=== PATIENT | female | born 1985 | race Caucasian/White ===

== ENCOUNTER 2016-07-12 17:03 | Observation (INO) | payer MEDICAID ==
[~2016-07-12] VITALS: Ht 157.5 cm; Wt 76.4 kg
[~2016-07-12 17:03] MED LIST: CETI10TA24 PO; FLUT9.9S NS; PREN1TAB25 PO; RIBO50TA PO
[2016-07-12 17:26] VITALS: BP 143/84
[2016-07-12] MEDS ORDERED: ACETAMINOPHEN 325 MG TABLET ONE (17:50)
[2016-07-12] MEDS ORDERED: ACETAMINOPHEN 325 MG TABLET PO PRN (18:00)
[2016-07-12 18:26] LABS: BLOOD UREA NITROGEN 6 mg/dL (7-18)
[2016-07-12 18:30] LABS: ASPARTATE AMINO TRANSFERASE 21 U/L (15-37)
[2016-07-12] MEDS ORDERED: BUTALB/APAP/CAFFEINE 50MG/325MG/40MG PO ONE (19:53)
== END 2016-07-12 23:10 | disposition home or self-care (01) ==
LOC: CLISVCS 17:03 → LDIP 19:00
PROVIDERS: ADMIT Student in an Organized Health Care Education/Training Program; ATTEND Student in an Organized Health Care Education/Training Program
DX: O13.3 Gestational [pregnancy-induced] hypertension without significant proteinuria, third trimester (principal); O12.03 Gestational edema, third trimester; O26.893 Other specified pregnancy related conditions, third trimester; R10.10 Upper abdominal pain, unspecified; R51 Headache; Z3A.37 37 weeks gestation of pregnancy
CPT/HCPCS: 36415; 80053; 81003; 82248; 82570; 84156; 84550; 85025; G0378; 59025

== ENCOUNTER 2016-07-13 14:24 | Inpatient (IN) | payer MEDICAID ==
[~2016-07-13] VITALS: Ht 157.5 cm; Wt 76.4 kg
[2016-07-13] MEDS ORDERED: MISOPROSTOL 25 MCG TABLET ONE (14:28)
[2016-07-13] MEDS ORDERED: OXYTOCIN 30U/ 0.9% NaCL 500ML 500 ML IV ONE (14:33)
[2016-07-13] MEDS: D5%-LACTATED RINGERS 1,000 ML IV SCH ×2 (14:33→22:33)
[2016-07-13] MEDS ORDERED: FENTANYL PF 100 MCG/2ML IVPush PRN (15:00)
[2016-07-13] MEDS ORDERED: MISOPROSTOL 25 MCG TABLET VG PRN (15:00)
[2016-07-13] MEDS ORDERED: TERBUTALINE 1 MG/ML, 1ML IVPush PRN (15:00)
[2016-07-13] MEDS ORDERED: ONDANSETRON 2MG/ML, 2ML IVPush PRN (15:00)
[2016-07-13] MEDS ORDERED: FENTANYL PF 100 MCG/2ML IV PRN (15:00)
[2016-07-13] MEDS: LACTATED RINGERS 1,000 ML IV SCH ×3 (15:00→22:33)
[2016-07-13] MEDS ORDERED: ACETAMINOPHEN 325 MG TABLET ONE (15:27)
[2016-07-13] MEDS: ACETAMINOPHEN 325 MG TABLET PO PRN (15:30)
[2016-07-13] MEDS ORDERED: MISOPROSTOL 200 MCG TABLET ONE (15:41)
[2016-07-13] MEDS ORDERED: LIDOCAINE 1%, 20ML ONE (15:41)
[2016-07-13] MEDS ORDERED: NEWBORN KIT ONE (15:42)
[2016-07-13] MEDS ORDERED: FENTANYL PF 100 MCG/2ML ONE (19:18)
[2016-07-13] MEDS ORDERED: DIPHENHYDRAMINE 50 MG CAPSULE PO PRN (21:00)
[2016-07-14] MEDS: LACTATED RINGERS 1,000 ML IV SCH ×4 (06:33→23:09)
[2016-07-14] MEDS: D5%-LACTATED RINGERS 1,000 ML IV SCH ×3 (06:33→22:33)
[2016-07-14] MEDS ORDERED: OXYTOCIN 30U/ 0.9% NaCL 500ML 500 ML IV PRN (08:20)
[2016-07-14] MEDS ORDERED: OXYTOCIN 30U/ 0.9% NaCL 500ML 500 ML ONE (09:15)
[2016-07-14] MEDS ORDERED: ACETAMINOPHEN 325 MG TABLET ONE (10:12)
[2016-07-14] MEDS: ACETAMINOPHEN 325 MG TABLET PO PRN (10:15)
[2016-07-14] MEDS ORDERED: FENTANYL/BUPIV./NS/PF 250 ML EPIDCONT SCH ×2 (12:55→23:09)
[2016-07-14] MEDS ORDERED: LACTATED RINGERS 1,000 ML IVBOLUS PRN ×2 (13:00→23:30)
[2016-07-14] MEDS ORDERED: BUPIVACAINE 0.25% ONE (13:41)
[2016-07-14] MEDS ORDERED: FENTANYL PF 100 MCG/2ML ONE (13:41)
[2016-07-14] MEDS ORDERED: FENTANYL/BUPIV./NS/PF 250 ML EPIDCONT ONE (13:41)
[2016-07-14] MEDS ORDERED: ONDANSETRON 2MG/ML, 2ML ONE (20:04)
[2016-07-15] MEDS ORDERED: SODIUM CITRATE/CITRIC ACID 30 ML UDC ONE (00:22)
[2016-07-15] MEDS ORDERED: METOCLOPRAMIDE 5 MG/ML, 2ML ONE (00:22)
[2016-07-15] MEDS ORDERED: LACTATED RINGERS 1,000 ML IVBOLUS ONE (00:30)
[2016-07-15] MEDS ORDERED: OXYTOCIN 30U/ 0.9% NaCL 500ML 500 ML IV SCH ×2 (00:30→00:52)
[2016-07-15] MEDS ORDERED: LACTATED RINGERS 1,000 ML IV SCH ×4 (00:30→00:52)
[2016-07-15] MEDS ORDERED: LIDOCAINE-MPF 2% ,5ML ONE (00:47)
[2016-07-15] MEDS ORDERED: FENTANYL PF 100 MCG/2ML ONE (00:47)
[2016-07-15] MEDS: KETOROLAC 30 MG/1 ML IM SCH ×4 (01:00→19:00)
[2016-07-15] MEDS ORDERED: OXYcodone/APAP 5/325MG TABLET PO PRN (01:00)
[2016-07-15] MEDS ORDERED: MISOPROSTOL 200 MCG TABLET PR PRN (01:00)
[2016-07-15] MEDS ORDERED: ONDANSETRON 2MG/ML, 2ML IV PRN (01:00)
[2016-07-15] MEDS ORDERED: CARBOPROST TROMETHAMINE 250 MCG/ML, 1ML IM PRN (01:00)
[2016-07-15] MEDS ORDERED: CALCIUM CARBONATE 500 MG TAB.CHEW PO PRN (01:00)
[2016-07-15] MEDS ORDERED: morphine SULFATE/PF 0.5 MG/ML, 10ML ONE (01:36)
[2016-07-15] MEDS ORDERED: HYDROmorphone 1 MG/ML, 1ML ONE (02:12)
[2016-07-15] MEDS: HYDROmorphone 1 MG/ML, 1ML IV PRN ×2 (02:23→03:13)
[2016-07-15 03:45] VITALS: BP 153/98
[2016-07-15] MEDS: LACTATED RINGERS 1,000 ML IV SCH (07:09)
[2016-07-15 08:00] VITALS: BP 142/107
[2016-07-15] MEDS: OXYcodone/APAP 5/325MG TABLET PO PRN ×4 (08:22→21:00)
[2016-07-15] MEDS: PRENATAL VIT/IRON/FA 1 EACH TABLET PO SCH (09:00)
[2016-07-15 12:21] VITALS: BP 131/84
[2016-07-15 16:11] VITALS: BP 135/92
[2016-07-15] MEDS: SIMETHICONE 80 MG CHEW TAB PO PRN (21:00)
[2016-07-15 22:25] VITALS: BP 136/92
[2016-07-16] MEDS: KETOROLAC 30 MG/1 ML IM SCH ×2 (01:00→07:00)
[2016-07-16] MEDS: OXYcodone/APAP 5/325MG TABLET PO PRN ×5 (01:29→20:41)
[2016-07-16 01:45] VITALS: BP 136/99
[2016-07-16] MEDS: SIMETHICONE 80 MG CHEW TAB PO PRN ×3 (05:21→16:48)
[2016-07-16 07:35] VITALS: BP 140/98
[2016-07-16] MEDS: PRENATAL VIT/IRON/FA 1 EACH TABLET PO SCH (08:33)
[2016-07-16] MEDS: DOCUSATE 100 MG CAPSULE PO PRN ×2 (09:25→20:41)
[2016-07-16 12:00] VITALS: BP 137/93
[2016-07-16 16:00] VITALS: BP 140/88
[2016-07-16] MEDS ORDERED: KETOROLAC 30 MG/1 ML ONE (16:19)
[2016-07-16] MEDS ORDERED: KETOROLAC 30 MG/1 ML IM ONE (16:30)
[2016-07-16 19:35] VITALS: BP 127/87
[2016-07-17] VITALS (10 sets, daily range): BP systolic 138–165; BP diastolic 90–107
[2016-07-17] MEDS: OXYcodone/APAP 5/325MG TABLET PO PRN ×6 (01:54→22:48)
[2016-07-17] MEDS: SIMETHICONE 80 MG CHEW TAB PO PRN ×2 (01:54→18:47)
[2016-07-17] MEDS: PRENATAL VIT/IRON/FA 1 EACH TABLET PO SCH (09:00)
[2016-07-17] MEDS: DOCUSATE 100 MG CAPSULE PO PRN ×2 (10:58→22:47)
[2016-07-17] MEDS: LABETALOL 100 MG TABLET PO SCH ×2 (13:14→21:49)
[2016-07-17 13:42] LABS: BLOOD UREA NITROGEN 8 mg/dL (7-18)
[2016-07-17 13:46] LABS: ASPARTATE AMINO TRANSFERASE 26 U/L (15-37)
[2016-07-17 15:41] LABS: PATH.CAST-FLAG NOT PRESENT; SPERM-FLAG NOT PRESENT; SRC-FLAG NOT PRESENT; XTAL-FLAG NOT PRESENT; YLC-FLAG NOT PRESENT
[2016-07-18] MEDS: SIMETHICONE 80 MG CHEW TAB PO PRN (01:47)
[2016-07-18] MEDS: OXYcodone/APAP 10/325MG TABLET PO PRN ×2 (03:16→07:10)
[2016-07-18 05:00] VITALS: BP_SYST 141; BP_SYST 157; BP_DIAS 93
[2016-07-18] MEDS: DOCUSATE 100 MG CAPSULE PO PRN (07:10)
[2016-07-18] MEDS: PRENATAL VIT/IRON/FA 1 EACH TABLET PO SCH (07:10)
[2016-07-18 09:20] VITALS: BP 148/92
[2016-07-18] MEDS: LABETALOL 100 MG TABLET PO SCH (09:50)
[2016-07-18] MEDS ORDERED: LABE100T3 PO (10:25)
[2016-07-18] MEDS ORDERED: IBUP200T48 PO (10:29)
[2016-07-18] MEDS ORDERED: OXYC-302 PO (10:30)
[2016-07-18] MEDS ORDERED: SIME125C67 PO (10:31)
[2016-07-18] MEDS ORDERED: DOCU-30 PO (10:31)
== END 2016-07-18 11:20 | disposition home or self-care (01) | DRG 765 ==
LOC: LDIP 14:24 → 2NW 07-15 03:10
PROVIDERS: ADMIT Student in an Organized Health Care Education/Training Program; ATTEND Student in an Organized Health Care Education/Training Program
PROC: 3E033VJ Introduction of Other Hormone into Peripheral Vein, Percutaneous Approach (ICD-10-PCS; 2016-07-13)
PROC: 3E0P7GC Introduction of Other Therapeutic Substance into Female Reproductive, Via Natural or Artificial Opening (ICD-10-PCS; 2016-07-13)
PROC: 0U7C7ZZ Dilation of Cervix, Via Natural or Artificial Opening (ICD-10-PCS; 2016-07-13)
PROC: 10907ZC Drainage of Amniotic Fluid, Therapeutic from Products of Conception, Via Natural or Artificial Opening (ICD-10-PCS; 2016-07-14)
PROC: 10D00Z1 Extraction of Products of Conception, Low, Open Approach (ICD-10-PCS; principal; 2016-07-15)
DX: O13.4 Gestational [pregnancy-induced] hypertension without significant proteinuria, complicating childbirth (principal); O99.354 Diseases of the nervous system complicating childbirth; O99.12 Other diseases of the blood and blood-forming organs and certain disorders involving the immune mechanism complicating childbirth; G43.909 Migraine, unspecified, not intractable, without status migrainosus; O99.62 Diseases of the digestive system complicating childbirth; O99.344 Other mental disorders complicating childbirth; K90.0 Celiac disease; F41.9 Anxiety disorder, unspecified; O62.0 Primary inadequate contractions; D72.829 Elevated white blood cell count, unspecified; O61.0 Failed medical induction of labor; O76 Abnormality in fetal heart rate and rhythm complicating labor and delivery; Z90.89 Acquired absence of other organs; Z79.899 Other long term (current) drug therapy; Z37.0 Single live birth; Z88.2 Allergy status to sulfonamides; Z3A.38 38 weeks gestation of pregnancy
CPT/HCPCS: 36415; 80053; 81001; 81003; 82248; 82570; 84156; 84550; 85025; 86850; 86900; J1170; J1885; J2274; J2405; J3010; J2590; J7120

== ENCOUNTER 2016-07-20 14:57 | Inpatient (IN) | payer MEDICAID ==
[~2016-07-20] VITALS: Ht 157.5 cm; Wt 70.9 kg
[~2016-07-20 14:57] MED LIST changes: +DOCU-30 PO; +IBUP200T48 PO; +LABE100T3 PO; +OXYC-302 PO; +SIME125C67 PO
[2016-07-20 15:39] LABS: ASPARTATE AMINO TRANSFERASE 43 U/L (15-37); BLOOD UREA NITROGEN 14 mg/dL (7-18)
[2016-07-20 16:27] VITALS: BP 151/97
[2016-07-20] MEDS ORDERED: MAGNESIUM SULFATE PMX 4GM/100M 100 ML IVPB ONE (17:00)
[2016-07-20] MEDS ORDERED: OXYcodone/APAP 5/325MG TABLET PO PRN (17:00)
[2016-07-20] MEDS ORDERED: LABETALOL 5MG/ML, 20ML IVPush SCH (17:00)
[2016-07-20] MEDS ORDERED: LACTATED RINGERS 1,000 ML IV SCH (17:00)
[2016-07-20] MEDS ORDERED: DOCUSATE 100 MG CAPSULE PO PRN (17:00)
[2016-07-20] MEDS ORDERED: MAGNESIUM SULFATE PMX 4GM/100M 100 ML ONE (17:06)
[2016-07-20] MEDS ORDERED: MAGNESIUM SULF. PMX 20GM/500ML 500 ML IV ONE (17:06)
[2016-07-20] MEDS: MAGNESIUM SULF. PMX 20GM/500ML 500 ML IV SCH (18:21)
[2016-07-20] MEDS ORDERED: LABETALOL 5MG/ML, 20ML ONE (19:39)
[2016-07-20] MEDS ORDERED: LABETALOL 5MG/ML, 20ML IVPush ONE (20:00)
[2016-07-20] MEDS ORDERED: DOCUSATE 100 MG CAPSULE ONE (21:00)
[2016-07-20] MEDS: NITROFURANTOIN (MACROBID) 100 MG CAPSULE PO SCH (21:37)
[2016-07-20] MEDS: TRIAMCINOLONE CRM 0.1%, 15GM TP SCH (21:38)
[2016-07-20] MEDS ORDERED: OXYcodone/APAP 5/325MG TABLET ONE (22:57)
[2016-07-20 23:32] LABS: ASPARTATE AMINO TRANSFERASE 42 U/L (15-37); BLOOD UREA NITROGEN 9 mg/dL (7-18)
[2016-07-21] MEDS: TRIAMCINOLONE CRM 0.1%, 15GM TP SCH (02:50)
[2016-07-21] MEDS ORDERED: MAGNESIUM SULF. PMX 20GM/500ML 500 ML IV ONE ×2 (05:14→16:24)
[2016-07-21] MEDS ORDERED: ACETAMINOPHEN 325 MG TABLET ONE (05:14)
[2016-07-21] MEDS: MAGNESIUM SULF. PMX 20GM/500ML 500 ML IV SCH (05:20)
[2016-07-21] MEDS ORDERED: ACETAMINOPHEN 325 MG TABLET PO PRN (05:30)
[2016-07-21 07:10] VITALS: BP 142/100
[2016-07-21] MEDS ORDERED: OXYcodone/APAP 5/325MG TABLET ONE ×2 (07:45→14:04)
[2016-07-21] MEDS: OXYcodone/APAP 5/325MG TABLET PO PRN ×2 (07:50→14:14)
[2016-07-21] MEDS: LABETALOL 200 MG TABLET PO SCH ×2 (09:43→17:46)
[2016-07-21] MEDS: NITROFURANTOIN (MACROBID) 100 MG CAPSULE PO SCH (10:05)
[2016-07-21 15:37] LABS: BLOOD UREA NITROGEN 6 mg/dL (7-18)
[2016-07-21 15:41] LABS: ASPARTATE AMINO TRANSFERASE 47 U/L (15-37)
[2016-07-21] MEDS ORDERED: MAGNESIUM SULF. PMX 20GM/500ML 500 ML IV SCH (16:51)
== END 2016-07-21 20:37 | disposition home or self-care (01) | DRG 776 ==
LOC: LDOP 14:57 → LDIP 16:51
PROVIDERS: ADMIT Student in an Organized Health Care Education/Training Program; ATTEND Student in an Organized Health Care Education/Training Program
PROC: 0T9B70Z Drainage of Bladder with Drainage Device, Via Natural or Artificial Opening (ICD-10-PCS; principal; 2016-07-20)
DX: O86.20 Urinary tract infection following delivery, unspecified (principal); O99.355 Diseases of the nervous system complicating the puerperium; O99.345 Other mental disorders complicating the puerperium; F41.9 Anxiety disorder, unspecified; G43.909 Migraine, unspecified, not intractable, without status migrainosus; Z88.2 Allergy status to sulfonamides
CPT/HCPCS: 36415; 80053; 81001; 82570; 83735; 84156; 84550; 85025; J3475; J7120